=== PATIENT | male | born 1960 | race Caucasian/White ===

== ENCOUNTER 2017-04-16 23:51 | Emergency (ER) | payer OTHER ==
[~2017-04-16] VITALS: Ht 182.9 cm; Wt 80.7 kg
[2017-04-17] MEDS ORDERED: BACTRIM DS TAB1 EACH PO (00:44)
== END 2017-04-17 01:11 | disposition home or self-care (01) ==
LOC: ER 23:51
DX: L73.9 Follicular disorder, unspecified (principal); F17.210 Nicotine dependence, cigarettes, uncomplicated; Z88.5 Allergy status to narcotic agent